=== PATIENT | male | born 1985 | race Caucasian/White ===

== ENCOUNTER 2018-06-25 22:28 | Emergency (ER) | payer SELFPAY ==
[2018-06-25] MEDS ORDERED: Sodium Chloride 0.9% 1,000 ML IV ONE (23:36)
[2018-06-25] MEDS ORDERED: Iohexol 240 (50 ml) PO ONE (23:37)
--- NOTE | 2018-06-25 23:38 | C.PDOC ---
History Of Present Illness 33 year old male presents to the ER with a complaint of abdominal pain, mostly RLQ, that began today. Denies nausea, vomiting, dysuria, or hematuria. Chief Complaint (Nursing): Abdominal Pain History Per: Patient History/Exam Limitations: no limitations Onset/Duration Of Symptoms: Hrs Current Symptoms Are (Timing): Still Present Location Of Pain/Discomfort: RLQ Quality Of Discomfort: Unable To Describe Associated Symptoms: denies: Fever, Chills, Urinary Symptoms Exacerbating Factors: None Alleviating Factors: None Recent travel outside of the [place]: No Past Medical History Reviewed: Historical Data, Nursing Documentation, Vital Signs Vital Signs: Last Vital Signs Temp 97.6 F 06/25/18 22:42 Pulse 75 06/25/18 22:42 Resp 16 06/25/18 22:42 BP 126/83 06/25/18 22:42 Pulse Ox 97 06/25/18 22:42 Surgical History: Tonsillectomy Family History: States: No Known Family Hx - Social History Hx Alcohol Use: No Hx Substance Use: No Review Of Systems Constitutional: Negative for: Fever, Chills Cardiovascular: Negative for: Chest Pain, Palpitations Respiratory: Negative for: Cough, Shortness of Breath Gastrointestinal: Positive for: Abdominal Pain. Negative for: Nausea, Vomiting Genitourinary: Negative for: Dysuria, Hematuria Neurological: Negative for: Weakness, Numbness Physical Exam - Physical Exam Appears: Non-toxic Skin: Normal Color, Warm, Dry Head: Atraumatic, Normacephalic Eye(s): bilateral: Normal Inspection Oral Mucosa: Moist Neck: Normal, Supple Chest: Symmetrical, No Tenderness Cardiovascular: Rhythm Regular Respiratory: Normal Breath Sounds, No Rales, No Rhonchi, No Wheezing Gastrointestinal/Abdominal: Soft, Tenderness (Lower quadrants and hypogastric area), No Guarding, No Rebound Back: No CVA Tenderness Neurological/Psych: Oriented x3, Normal Speech ED Course And Treatment - Laboratory Results Result Diagrams: 06/25/18 23:54 06/25/18 23:54 O2 Sat by Pulse Oximetry: 97 (Room air) Pulse Ox Interpretation: Normal Progress Note: CT abd/pel, blood work, and urinalysis ordered. IV fluids and toradol administered. Disposition Counseled Patient/Family Regarding: Diagnosis - Disposition Referrals: [facility] [Outside] Disposition: HOME/ ROUTINE Disposition Time: 03:20 Condition: STABLE Prescriptions: Ciprofloxacin [Cipro] 1 tab PO BID #14 tab Naproxen 375 mg PO TID #14 tablet Instructions: Acute Abdomen (Belly Pain), Adult (DC), Urinary Tract Infections in Adults Forms: [facility] ([place]) - Clinical Impression Clinical Impression: Abdominal pain, UTI (urinary tract infection) - Scribe Statement The provider has reviewed the documentation as recorded by the Scribnikko Bueno All medical record entries made by the Janetibnikko were at my direction and personally dictated by me. I have reviewed the chart and agree that the record accurately reflects my personal performance of the history, physical exam, medical decision making, and the department course for this patient. I have also personally directed, reviewed, and agree with the discharge instructions and disposition.
[2018-06-25] MEDS ORDERED: Iodixanol 320 MG/ML 100 ML BOTTLE IV ONE (23:50)
[2018-06-25] MEDS ORDERED: Sodium Chloride 0.9% 1,000 ML ONE (23:51)
[2018-06-25] MEDS ORDERED: Iohexol 240 (50 ml) ONE (23:51)
[2018-06-25 23:59] LABS: BASO # 0.1 K/uL (0.0-0.2); BASO % 1.1 % (0.0-2.0); EOS # 0.1 K/uL (0.0-0.7); EOS % 1.4 % (0.0-4.0); HEMOGLOBIN 15.4 g/dL (12.0-18.0); LYMPH # 1.6 K/uL (1.0-4.3); LYMPH % 28.1 % (20.0-40.0); MEAN CELL VOLUME 87.5 fL (80.0-94.0); MEAN CORPUSCULAR HEMOGLOBIN 29.6 pg (27.0-31.0); MEAN CORPUSCULAR HGB CONC 33.9 g/dL (33.0-37.0); MEAN PLATELET VOLUME 7.3 fL (7.2-11.7); MONO # 0.3 K/uL (0.0-0.8); MONO % 5.8 % (0.0-10.0); NEUT # 3.7 K/uL (1.8-7.0); NEUT % 63.6 % (50.0-75.0); NRBC % 0.1 % (0.0-2.0); RBC 5.2 Mil/uL (4.40-5.90); RED CELL DISTRIBUTION WIDTH 13.2 % (11.5-14.5); WHITE BLOOD COUNT 5.9 K/uL (4.8-10.8)
[2018-06-26 00:02] LABS: SQUAMOUS EPITHIAL < 1 /hpf (0-5); URINE BILIRUBIN NEGATIVE (NEGATIVE); URINE BLOOD 2+ (NEGATIVE); URINE CLARITY Clear (Clear); URINE COLOR Yellow (YELLOW); URINE GLUCOSE (UA) NORMAL (Normal); URINE LEUKOCYTE ESTERASE NEG Leu/uL (Negative); URINE PROTEIN NEGATIVE (NEGATIVE); URINE UROBILINOGEN NORMAL mg/dL (0.2-1.0)
[2018-06-26 00:14] LABS: ALB/GLOB RATIO 1.6 (1.0-2.1); ALBUMIN 4.6 g/dL (3.5-5.0); ALT/SGPT 44 U/L (21-72); AST/SGOT 33 U/L (17-59); BLOOD UREA NITROGEN 15 mg/dL (9-20); GFR NON-AFRICAN AMERICAN > 60; LIPASE 44 U/L (23-300)
[2018-06-26 02:40] VITALS: RESP 20
[2018-06-26 03:22] VITALS: O2SAT 97
[2018-06-26 03:43] VITALS: BP 119/73; PULSE 62; TEMP 97.5
--- NOTE | 2018-06-26 13:23 | CT ---
Date of service: 06/26/2018 PROCEDURE: CT Abdomen and Pelvis. HISTORY: Lower abdominal pain COMPARISON: No prior study available for comparison.. TECHNIQUE: Contiguous axial images of the abdomen pelvis performed following oral and intravenous injection of approximately 100 cc Visipaque 320 contrast material. Additional 2D sagittal reformats generated. Radiation dose: Total exam DLP = 439.74 mGy-cm. This CT exam was performed using one or more of the following dose reduction techniques: Automated exposure control, adjustment of the mA and/or kV according to patient size, and/or use of iterative reconstruction technique. FINDINGS: LOWER THORAX: Lung bases clear. No infiltrate effusion or basilar the pneumothorax. There is a small hiatal hernia. Heart size is within range of normal. No significant pericardial effusion. LIVER: Liver exhibits normal size and attenuation pattern without mass collection or calcification.. Portal and splenic veins are opacified. GALLBLADDER AND BILE DUCTS: Gallbladder is physiologically distended. No evidence of intraluminal gallbladder calculi. PANCREAS: Unremarkable. No mass. No ductal dilatation. SPLEEN: Spleen exhibits normal size and attenuation pattern without masses collections or calcifications.. ADRENALS: No adrenal lesions.. KIDNEYS AND URETERS: Kidneys demonstrate relatively symmetric nephrograms. No evidence of nephrolithiasis or hydronephrosis.. BLADDER: The urinary bladder appears incompletely distended which may in part account for slight thick-walled appearance. Muscular hypertrophy may contribute. Prostate gland. REPRODUCTIVE: Measures approximately 4.2 cm in transverse dimension. APPENDIX: Normal-appearing appendix best seen on axial series 3 image number [id number]. Note that the distal tip of the appendix appears slightly more prominent than most of the proximal appendix and is unopacified. Possibility of a mild early acute appendicitis must be considered therefore recommend clinical correlation with history physical exam and laboratory values. BOWEL: Evaluation of the bowel is slightly limited the the the due to incomplete opacification. The stomach is incompletely distended with secondary mild wall thickening. The visualized loops of small bowel exhibit normal contour and caliber. No evidence of acute mechanical small bowel obstruction with oral contrast material seen extending into the colon to the level of the proximal sigmoid colon. Few scattered colonic diverticula however no radiographic evidence of acute diverticulitis. PERITONEUM: No gross free intraperitoneal air. There are no free or loculated fluid collections. LYMPH NODES: Unremarkable. No enlarged lymph nodes. VASCULATURE: unremarkable. No aortic aneurysm. No significant o aortic atherosclerotic calcification or mural plaque present. BONES: Minor multilevel degenerative spondylosis of the lower thoracic and lumbar spine.. OTHER FINDINGS: None. IMPRESSION: Mild fatty hepatic infiltration. There is slight dilatation of the tip of the appendix which is also not opacified compared to the normal caliber and opacified proximal appendix. The possibility of early acute appendicitis must be considered therefore clinical correlation is recommended. Note that this report was placed in PA review folder follow up. These discussed with emergency room PA uJliann at approximately 1:15 p.m. with written down and read back verification.
== END 2018-06-26 03:43 | disposition home or self-care (01) ==
LOC: C.ER 22:28
DX: N39.0 Urinary tract infection, site not specified (principal); R10.9 Unspecified abdominal pain
CPT/HCPCS: 74177; 80053; 81001; 83690; 85025; 87086; 96374; 99284; J1885; J7030; Q9966; Q9967